=== PATIENT | female | born 1975 | race Caucasian/White ===

== ENCOUNTER → 2021-08-29 10:38 | Outpatient (CLI) | payer BC, SELFPAY ==
[2021-08-29 11:37] LABS: Influenza A - CEPHEID Flu A NEGATIVE (NEGATIVE); Influenza B - CEPHEID Flu B NEGATIVE (NEGATIVE)
[2021-08-29 11:41] LABS: COVID19 -Nasal RAPID Negative (Negative)
== END ==
PROVIDERS: Visit Provider Nurse Practitioner Family
DX: Z20.822 Contact with and (suspected) exposure to COVID-19 (principal); J06.9 Acute upper respiratory infection, unspecified
CPT/HCPCS: 87502; 87635

== ENCOUNTER 2021-11-21 02:48 | Emergency (ER) | payer BC, SELFPAY ==
--- NOTE | 2021-11-21 02:56 | ED.FALL ---
HPI - Fall General Stated Complaint: v/d rt upper back pain x2 hours Time Seen by Provider: 11/21/21 02:54 Related Data Allergies Allergy/AdvReac Type Severity Reaction Status Date / Time Sulfa (Sulfonamide Allergy Unknown Verified 08/29/21 10:36 Antibiotics) Patient History Social History Smoking Status: Never smoker Smoking Status: Never smoker Course Orders Ordered: ED Orders 11/21/21 02:55 CT cervical spine wo con Stat CT head/brain wo con Stat Ketorolac Tromethamine (Ketorolac 30 Mg/Ml Vial) 30 mg IM NOW ONE Stop: 11/21/21 02:56 Discharge Plan Departure Referrals: Miscellaneous,Doctor, [Primary Care Provider] -
[2021-11-21 03:05] VITALS: BP 140/67; PULSE 96; RESP 20; TEMP 36.6; O2SAT 99; BMI 40.7
--- NOTE | 2021-11-21 03:18 | ED_ITS ---
HPI - Back Pain/Injury General Chief Complaint: Abdominal Pain Stated Complaint: v/d rt upper back pain x2 hours Time Seen by Provider: 11/21/21 02:54 Source: patient Mode of arrival: Ambulatory Limitations: no limitations History of Present Illness HPI Narrative: This is a 46-year-old female comes in with complaint of sudden onset while sleeping of right upper quadrant pain radiating to the back she has had vomiting and diarrhea. Symptoms started about 2 hours prior to arrival. She has had 2 episodes of vomiting and diarrhea but no black or blood. No fevers or chills. No chest pain shortness of breath. No dysuria urgency or frequency. No new vaginal bleeding or discharge. Patient has had a cholecystectomy, hysterectomy and appendectomy which was performed with her hysterectomy. She states this fe els bili similar to when she had her gallbladder out. She does not smoke. She usually has 1 to 2 alcoholic drinks every couple days. No illicit recreational drugs. She does have a history of seasonal asthma, DANIELS with typicall normal LFTs, hypertriglyceridemia with levels 400 last year and gabapentin for migraines. She states she is allergic to sulfa and morphine. She is accompanied by . Her primary care is in [place]. Related Data Allergies Allergy/AdvReac Type Severity Reaction Status Date / Time Sulfa (Sulfonamide Allergy Unknown Verified 08/29/21 10:36 Antibiotics) Review of Systems Review of Systems ROS Unobtainable: All systems reviewed & are unremarkable except as noted in HPI and below Patient History Social History Smoking Status: Never smoker Smoking Status: Never smoker alcohol intake frequency: 0-2 drinks per day Substance Use Type: does not use Exam Narrative Exam Narrative: GENERAL: Alert and oriented x three, obese female in [id number] distress. HEENT: Head normocephalic, atraumatic, EOMI, pupils reactive, face symmetric, moist mucous membranes NECK: Supple, full range of motion CARDIOVASCULAR: Regular rate and rhythm without murmurs, rubs or gallops. RESPIRATORY: Breath sounds equal bilaterally, no wheezes rales or rhonchi. ABDOMEN: Soft, nontender. Normoactive bowel sounds all 4 quadrants. No guarding or rebound, rigidity, no mass : No CVA tenderness EXTREMITIES: Normal range of motion, no clubbing or edema. Neurovascularly intact NEUROLOGICAL: Cranial nerves II through XII grossly intact. Moving all extremities SKIN: Warm, dry, no petechiae, no rashes or lesions. Initial Vital Signs Initial Vital Signs: Vital Signs Temperature 97.9 F 11/21/21 03:05 Pulse Rate 96 H 11/21/21 03:05 Respiratory Rate 20 11/21/21 03:05 Blood Pressure 140/67 11/21/21 03:05 Pulse Oximetry 99 11/21/21 03:05 Course Orders Ordered: ED Orders 11/21/21 03:24 EKG-12 Lead Stat 11/21/21 03:34 Complete Blood Count AUTO DIFF Stat Comprehensive Metabolic Panel Stat Lipase Stat 11/21/21 03:45 Urine Microscopic Stat 11/21/21 03:51 COVID19 -Nasal swab/Pre-Proc Stat 11/21/21 04:00 CT abdomen pelvis w con Stat Discontinued Medications Ketorolac Tromethamine (Ketorolac 30 Mg/Ml Vial) 30 mg IM NOW ONE Stop: 11/21/21 02:56 Ketorolac Tromethamine (Ketorolac 30 Mg/Ml Vial) 30 mg IV NOW ONE Stop: 11/21/21 05:40 Last Admin: 11/21/21 05:46 Dose: 30 mg Documented by: WINSOME Ondansetron HCl (Ondansetron 4 Mg/2 Ml Inj) 4 mg IV NOW ONE Stop: 11/21/21 03:56 Last Admin: 11/21/21 04:09 Dose: 4 mg Documented by: WINSOME Ondansetron HCl (Ondansetron 4 Mg Odt Prepack) 1 bottle MISC SEEINSTR ONE Stop: 11/21/21 06:21 Last Admin: 11/21/21 06:26 Dose: 1 bottle Documented by: Reevaluation(s) Reevaluation #1: Patient feeling much better after medications. No additional vomiting or diarrhea. Time: 06:22 Vital Signs Vital signs: Vital Signs - 8 hr 11/21/21 03:05 11/21/21 04:49 11/21/21 05:00 Temperature 97.9 F Pulse Rate 96 H 73 72 Respiratory Rate 20 Blood Pressure 140/67 Pulse Oximetry 99 94 94 MDM - Back Pain/Injury Lab Data Result diagrams: 11/21/21 03:34 11/21/21 03:34 Labs: Lab Results 11/21/21 11/21/21 11/21/21 Range/Units 03:34 03:34 03:45 WBC 11.2 H (4.5-11.0) X10^3/uL RBC 4.70 (4.0-5.2) X10^6/uL Hgb 14.1 (12.0-16.0) g/dL Hct 41.2 (36-46) % MCV 87.8 (80-100) fL MCH 30.0 (26-34) PG MCHC 34.2 (30-36) % RDW 13.0 (11.6-14.8) % Plt Count 175 (150-400) X10^3/uL Neut % (Auto) 80.8 H (50-75) % Lymph % (Auto) 11.3 L (25-40) % [place] % (Auto) 6.4 (3-14) % Eos % (Auto) 1.1 L (2-4) % Baso % (Auto) 0.4 (0-2) % Neut # (Auto) 9000 H (4397-0307) /uL Lymph # (Auto) 1300 (7674-4315) /uL [place] # (Auto) 700 (0-900) /uL Eos # (Auto) 100 (0-450) /uL Baso # (Auto) 0 (0-100) /uL Sodium 138 (137-145) mmol/L Potassium 4.3 (3.4-5.1) mmol/L Chloride 104 (98-107) mmol/L Carbon Dioxide 29 (22-32) mmol/L BUN 19 H (7-17) mg/dL Creatinine 0.81 (0.52-1.04) mg/dL Estimated GFR > 60.0 (>60) mL/min BUN/Creatinine Ratio 23.5 H (6-22) Glucose 129 H (70-100) mg/dL Calcium 9.2 (8.4-10.2) mg/dL Total Bilirubin 0.5 (0.2-1.3) mg/dL AST 36 (14-36) IU/L ALT 40 H (<35) IU/L Alkaline Phosphatase 70 (38-126) U/L Total Protein 7.0 (6.3-8.2) g/dL Albumin 4.5 (3.5-5.0) g/dL Globulin 2.5 (1.7-4.1) g/dL Albumin/Globulin Ratio 1.8 (1.0-2.8) Lipase 92 (23-300) U/L Urine RBC None seen (0-5/HPF) Urine WBC 0-1/hpf (0-5/HPF) Ur Squamous Epith Cells 1-5 /hpf (0-5/HPF) Urine Bacteria None seen (None) Ur Culture Indicated? Cult not indicated SARS-CoV-2 (PCR) (Negative) 11/21/21 Range/Units 03:51 WBC (4.5-11.0) X10^3/uL RBC (4.0-5.2) X10^6/uL Hgb (12.0-16.0) g/dL Hct (36-46) % MCV (80-100) fL MCH (26-34) PG MCHC (30-36) % RDW (11.6-14.8) % Plt Count (150-400) X10^3/uL Neut % (Auto) (50-75) % Lymph % (Auto) (25-40) % [place] % (Auto) (3-14) % Eos % (Auto) (2-4) % Baso % (Auto) (0-2) % Neut # (Auto) (4586-0058) /uL Lymph # (Auto) (3243-2809) /uL [place] # (Auto) (0-900) /uL Eos # (Auto) (0-450) /uL Baso # (Auto) (0-100) /uL Sodium (137-145) mmol/L Potassium (3.4-5.1) mmol/L Chloride (98-107) mmol/L Carbon Dioxide (22-32) mmol/L BUN (7-17) mg/dL Creatinine (0.52-1.04) mg/dL Estimated GFR (>60) mL/min BUN/Creatinine Ratio (6-22) Glucose (70-100) mg/dL Calcium (8.4-10.2) mg/dL Total Bilirubin (0.2-1.3) mg/dL AST (14-36) IU/L ALT (<35) IU/L Alkaline Phosphatase (38-126) U/L Total Protein (6.3-8.2) g/dL Albumin (3.5-5.0) g/dL Globulin (1.7-4.1) g/dL Albumin/Globulin Ratio (1.0-2.8) Lipase (23-300) U/L Urine RBC (0-5/HPF) Urine WBC (0-5/HPF) Ur Squamous Epith Cells (0-5/HPF) Urine Bacteria (None) Ur Culture Indicated? SARS-CoV-2 (PCR) Negative (Negative) Point of Care Testing Test Results Negative Urine Dip Bedside Urine Glucose Negative Bedside Urine Bilirubin + 1 Bedside Urine Ketone - Negative Urine Specific Zam[place] 1.015 Bedside Urine Occult Blood - Negative Bedside Urine pH 6.5 Bedside Urine Protein +/- 15 Bedside Urine Urobilinogen - Negative Bedside Urine Nitrite - Negative Bedside Urine Leukocytes - Negative Esterase Imaging Data CT scan - abdomen/pelvis: Radiologist's Impression: Hepatomegaly with hepatic steatosis. Post cholecystectomy. Normal pancreas. Normal appendix and terminal ileum. Mild thickened loops of proximal small bowel with an obstructing pattern reflecting small bowel enteritis and no evidence of obstructive uropathy. ECG Data Attestation: I personally reviewed and interpreted this ECG as follows: Prior ECG tracings: not available for review Interpretation: Sinus rhythm, rate of 78 WI 184 QRS of [address]TC [address] No acute ST elevation or depression noted. MDM Narrative Medical decision making narrative: This is a 46-year-old female who had sudden onset of right upper abdominal pain radiating to her back similar to when she had her gallbladder out with vomiting and diarrhea for several hours. Patient has not had any persistent diarrhea vomiting in the department. She has Zofran which was helpful. Labs and urine reassuring. CT was ordered as she no longer has a gallbladder. She has findings consistent with small-bowel enteritis but no other acute changes appreciated. Patient feels much more comfortable upon reassessment. She feels comfortable returning home. Give her short course of Zofran and return precautions discussed. Discharge Plan Departure Patient Disposition: Home Clinical Impression: Abdominal pain, vomiting, and diarrhea Instructions: DI for Viral Gastroenteritis -- Adult Activity Restrictions/Additional Instructions: Your labs and imaging findings today are consistent with a gastroenteritis. You may take Zofran 1 tablet every 6 hours as needed for nausea. Please return for fevers, new or worsening abdominal, back or flank pain, persistent vomiting, black or bloody stools or other new or concerning symptoms. Referrals: Miscellaneous,Doctor, [Primary Care Provider] -
[2021-11-21 03:47] LABS: Add Manual Diff / Slide Review NO; Basophils Absolute Auto 0 /uL (0-100); Basophils Percent Auto 0.4 % (0-2); Eosinophils Absolute Auto 100 /uL (0-450); Eosinophils Percent Auto 1.1 % (2-4); Hematocrit 41.2 % (36-46); Hemoglobin 14.1 g/dL (12.0-16.0); Lymphocytes Absolute Auto 1300 /uL (1100-4500); Lymphocytes Percent Auto 11.3 % (25-40); Mean Corpuscular HGB Conc 34.2 % (30-36); Mean Corpuscular Volume 87.8 fL (80-100); Monocytes Absolute Auto 700 /uL (0-900); Monocytes Percent Auto 6.4 % (3-14); Neutrophils Absolute Auto 9000 /uL (1500-7000); Neutrophils Percent Auto 80.8 % (50-75); Platelet Count 175 X10^3/uL (150-400); White Blood Cell Count 11.2 X10^3/uL (4.5-11.0)
[2021-11-21 03:53] LABS: Alanine Aminotransferase 40 IU/L (<35); Albumin 4.5 g/dL (3.5-5.0); Albumin Globulin Ratio 1.8 (1.0-2.8); Alkaline Phosphatase 70 U/L (38-126); Aspartate Aminotransferase 36 IU/L (14-36); BUN Creatinine Ratio 23.5 (6-22); Bilirubin Total 0.5 mg/dL (0.2-1.3); Blood Urea Nitrogen 19 mg/dL (7-17); Calcium 9.2 mg/dL (8.4-10.2); Carbon Dioxide 29 mmol/L (22-32); Chloride 104 mmol/L (98-107); Estimated Glomerular Filt Rate > 60.0 mL/min (>60); Globulin 2.5 g/dL (1.7-4.1); Glucose 129 mg/dL (70-100); HEMOLYSIS < 15 (0-50); Lipase 92 U/L (23-300); Potassium 4.3 mmol/L (3.4-5.1); Sodium 138 mmol/L (137-145)
--- NOTE | 2021-11-21 04:00 | DI.CT.S_ITS ---
PROCEDURE: CT ABDOMEN PELVIS W CON INDICATIONS: RUQ pain radiates to back. v/d TECHNIQUE: After the administration of oral and IV contrast, axial sections were acquired from the lung bases to the pubic symphysis. Coronal and sagittal reformats were performed. For radiation dose reduction, the following was used: automated exposure control, adjustment of mA and/or kV according to patient size. COMPARISON: None. FINDINGS: Image quality: Excellent. Lung bases: Unremarkable. Heart: No significant findings. ABDOMEN: Liver: Prominent size. Possible hepatic steatosis. No focal lesion. Gallbladder: Surgically absent. Biliary ducts: No dilatation. Pancreas: Enhances uniformly. No peripancreatic fluid collection. Spleen: No splenomegaly. Adrenal Glands: No nodule. Kidneys and Ureters: No hydronephrosis. Small simple cyst at the superior pole of the left kidney. Stomach and Bowel: Stomach, small bowel loops, and colon are unremarkable. Peritoneum: No abnormal intraperitoneal fluid. No free air. Ventral Wall: No hernia. Abdominal Nodes: No retroperitoneal or mesenteric adenopathy by size criteria. Vessels: Aorta and inferior vena cava are normal in size. PELVIS: Pelvic Organs: Uterus is absent. Bladder: Decompressed. Pelvic Nodes: No enlarged lymph nodes. Miscellaneous: No inguinal hernias are seen. Bones: No compression fracture. IMPRESSION: 1. No acute inflammatory process is identified. No peripancreatic fluid collection. 2. Post cholecystectomy. 3. No hydronephrosis. No significant discrepancy with the overnight preliminary interpretation. Dictated by: Ramiro Wells M.D. on 11/21/2021 at 8:20 Approved by: Ramiro Wells M.D. on 11/21/2021 at 8:36
[2021-11-21] MEDS: ONDANSETRON 4 MG/2 ML INJ IV (04:09)
[2021-11-21 04:10] LABS: COVID19 -Nasal RAPID Negative (Negative)
[2021-11-21 04:13] LABS: Bacteria Urine None Seen; Culture Indicated Urine Cult Not Indicated; RBC Urine None Seen (0-5/HPF); Squamous Epithelial Cell Urine 1-5 /HPF (0-5/HPF); WBC Urine 0-1/HPF (0-5/HPF)
[2021-11-21 04:49] VITALS: PULSE 73; O2SAT 94
[2021-11-21 05:00] VITALS: PULSE 72; O2SAT 94
[2021-11-21 05:30] VITALS: PULSE 71; O2SAT 94
[2021-11-21] MEDS: KETOROLAC 30 MG/ML VIAL IV (05:46)
[2021-11-21 06:00] VITALS: PULSE 66; O2SAT 95
[2021-11-21] MEDS: ONDANSETRON 4 MG ODT PREPACK 1 BOTTLE MISC (06:26)
[2021-11-21 06:35] VITALS: BP 119/64; PULSE 68; RESP 18; O2SAT 96
== END 2021-11-21 06:36 | disposition home or self-care (01) ==
PROVIDERS: Emergency Provider Emergency Medicine
DX: R10.11 Right upper quadrant pain (principal); R11.2 Nausea with vomiting, unspecified; R19.7 Diarrhea, unspecified; Z20.822 Contact with and (suspected) exposure to COVID-19
CPT/HCPCS: 36415; 74177; 80053; 81003; 81015; 81025; 83690; 85025; 87635; 93005; 96374; 96375; 99284; C9803; J1885; J2405; Q9967

== ENCOUNTER → 2022-01-03 15:54 | Outpatient (ROUT) | payer BC, SELFPAY | PROVIDERS: Visit Provider Ophthalmology | DX: H10.011 Acute follicular conjunctivitis, right eye (principal) | CPT/HCPCS: 87070; 87075; 87205 ==

== ENCOUNTER → 2022-02-14 07:18 | Outpatient (CLI) | payer OTHER, SELFPAY ==
[2022-02-14 08:07] LABS: Alanine Aminotransferase 42 IU/L (<35); Albumin 4.5 g/dL (3.5-5.0); Albumin Globulin Ratio 1.9 (1.0-2.8); Alkaline Phosphatase 76 U/L (38-126); Aspartate Aminotransferase 35 IU/L (14-36); BUN Creatinine Ratio 23.5 (6-22); Bilirubin Total 0.5 mg/dL (0.2-1.3); Blood Urea Nitrogen 19 mg/dL (7-17); Calcium 9.1 mg/dL (8.4-10.2); Carbon Dioxide 29 mmol/L (22-32); Chloride 105 mmol/L (98-107); Cholesterol 158 mg/dL (140-199); Estimated Glomerular Filt Rate > 60.0 mL/min (>60); Globulin 2.4 g/dL (1.7-4.1); Glucose 119 mg/dL (70-100); HDL Cholesterol 41 mg/dL (40-60); HEMOLYSIS < 15 (0-50); LDL Cholesterol Calculated 79 mg/dL (<100); Potassium 4.3 mmol/L (3.4-5.1); Sodium 140 mmol/L (137-145); Total Protein 6.9 g/dL (6.3-8.2); Triglycerides 191 mg/dL (35-150)
[2022-02-14 10:03] LABS: Hep C Virus Ab w/Reflex Quant NEGATIVE s/c (NEGATIVE)
[2022-02-16 11:54] LABS: QuantiFERON Mitogen Value >10.00 IU/mL (.); QuantiFERON Nil Value 0.08 IU/mL (.); QuantiFERON TB Gold Plus Negative (Negative); QuantiFERON TB1 Ag Value 0.08 IU/mL (.); QuantiFERON TB2 Ag Value 0.08 IU/mL (.)
== END ==
PROVIDERS: PCP Internal Medicine; Referring Provider Internal Medicine; Visit Provider Internal Medicine
DX: Z00.00 Encounter for general adult medical examination without abnormal findings (principal); Z11.1 Encounter for screening for respiratory tuberculosis
CPT/HCPCS: 36415; 80053; 80061; 84443; 86480; 86803

== ENCOUNTER → 2022-09-19 16:54 | Outpatient (CLI) | payer BC, SELFPAY ==
[2022-09-19 17:49] LABS: Alanine Aminotransferase 77 IU/L (<35); Albumin 4.7 g/dL (3.5-5.0); Albumin Globulin Ratio 1.7 (1.0-2.8); Alkaline Phosphatase 81 U/L (38-126); Aspartate Aminotransferase 52 IU/L (14-36); BUN Creatinine Ratio 16.7 (6-22); Bilirubin Total 0.5 mg/dL (0.2-1.3); Blood Urea Nitrogen 17 mg/dL (7-17); Calcium 9.2 mg/dL (8.4-10.2); Carbon Dioxide 25 mmol/L (22-32); Chloride 102 mmol/L (98-107); Estimated Glomerular Filt Rate > 60 mL/min (>60); Globulin 2.8 g/dL (1.7-4.1); Glucose 105 mg/dL (70-100); HEMOLYSIS 23 (0-50); Sodium 138 mmol/L (137-145); Total Protein 7.5 g/dL (6.3-8.2); Uric Acid 5.9 mg/dL (2.5-6.2)
[2022-09-19 17:53] LABS: Rheumatoid Factor 9.2 IU/mL (<12.0)
[2022-09-19 18:12] LABS: Add Manual Diff / Slide Review NO; Basophils Absolute Auto 0 /uL (0-100); Basophils Percent Auto 0.6 % (0-2); Eosinophils Absolute Auto 100 /uL (0-450); Eosinophils Percent Auto 2.1 % (2-4); Hematocrit 40.6 % (36-46); Lymphocytes Absolute Auto 2000 /uL (1100-4500); Lymphocytes Percent Auto 35.5 % (25-40); Mean Corpuscular HGB Conc 34.6 % (30-36); Mean Corpuscular Hemoglobin 30.1 PG (26-34); Monocytes Absolute Auto 500 /uL (0-900); Monocytes Percent Auto 9.1 % (3-14); Neutrophils Absolute Auto 2900 /uL (1500-7000); Neutrophils Percent Auto 52.7 % (50-75); Platelet Count 168 X10^3/uL (150-400); Red Blood Cell Count 4.67 X10^6/uL (4.0-5.2); Red Cell Distribution Width 13.3 % (11.6-14.8); White Blood Cell Count 5.5 X10^3/uL (4.5-11.0)
[2022-09-19 18:29] LABS: Thyroid Stimulating Hormone 1.58 uIU/mL (0.47-4.68)
[2022-09-19 18:57] LABS: Erythrocyte Sedimentation Rate 3 MM/HR (0-20)
[2022-09-21 08:10] LABS: EBV Virus IgM Ab < 36.0 U/mL (0.0-35.9)
[2022-09-21 14:08] LABS: SS A Ro Sjogrens Antibody < 0.2 AI (0.0-0.9); SS B La Sjogrens Antibody < 0.2 AI (0.0-0.9)
[2022-09-22 07:19] LABS: Angiotensin Converting Enzyme 54 U/L (14-82)
[2022-09-23 12:53] LABS: ANA Screen, IFA Negative (.)
[2022-10-02 18:07] LABS: HLA B27 Negative (.)
== END ==
PROVIDERS: PCP Internal Medicine; Referring Provider Ophthalmology; Visit Provider Ophthalmology
DX: H15.101 Unspecified episcleritis, right eye (principal); H54.7 Unspecified visual loss; H44.111 Panuveitis, right eye
CPT/HCPCS: 36415; 80053; 81374; 82164; 84443; 84550; 85025; 85651; 86038; 86140; 86235; 86430; 86665

== ENCOUNTER → 2023-11-23 16:28 | Outpatient (CLI) | payer BC, SELFPAY ==
--- NOTE | 2023-11-23 16:30 | DI.MRI.S_ITS ---
PROCEDURE: MR CERVICAL SPINE WO CON INDICATIONS: Radiculopathy, cervical region TECHNIQUE: Noncontrast sagittal T1 spin echo and T2 fast spin echo, sagittal STIR, foraminal oblique sagittal T2 fast spin echo, and axial gradient echo or T2 fast spin echo through the cervical spine. COMPARISON: [facility], CR, XR CERVICAL SPINE WITH OBLIQUES, 10/19/2023, 9:21. [facility], CT, CT CERVICAL SPINE WITHOUT CONTRAST, 04/28/2022, 16:30. FINDINGS: Image quality: Excellent. Alignment and Curvature: Cervical straightening is present. Bone Marrow: Marrow demonstrates normal overall signal. Spinal Cord: Visualized spinal cord has normal size and signal. No cerebellar tonsillar herniation. Paraspinous Soft Tissues: No paravertebral masses. Prevertebral soft tissues are normal in thickness. Discs: Minimal disc desiccation is present C5-6. C2-C3: No disc bulge, spinal stenosis or foraminal narrowing. C3-C4: Trace disc bulge with effacement of the anterior thecal sac. No foraminal narrowing. C4-C5: Trace disc bulge with superimposed posterior central protrusion with indentation of the anterior thecal sac as well as cord. No foraminal narrowing. C5-C6: Trace disc bulge with superimposed posterior central protrusion with slight indentation of the anterior thecal sac and cord. Overall mild spinal stenosis. Mild left foraminal narrowing. C6-C7: Minimal disc bulge with slight effacement of the anterior thecal sac. Minimal left foraminal narrowing. C7-T1: No disc bulge, spinal stenosis or foraminal narrowing. IMPRESSION: Multilevel early degenerative changes. Foraminal narrowing is most prominent at C5-6. Dictated by: Aislinn Fagan M.D. on 11/26/2023 at 10:12 Approved by: Aislinn Fagan M.D. on 11/26/2023 at 11:31
== END ==
PROVIDERS: PCP Internal Medicine; Referring Provider Physical Medicine & Rehabilitation Pain Medicine; Visit Provider Physical Medicine & Rehabilitation Pain Medicine
DX: M54.12 Radiculopathy, cervical region (principal); M48.02 Spinal stenosis, cervical region
CPT/HCPCS: 72141

== ENCOUNTER → 2024-06-19 07:50 | Outpatient (CLI) | payer BC, SELFPAY ==
--- NOTE | 2024-06-19 07:51 | DI.MG.S_ITS ---
BILATERAL DIGITAL SCREENING MAMMOGRAM 3D/2D WITH CAD: 06/19/2024 CLINICAL: Routine screening. Family history of breast cancer. Comparison is made to exams dated: 02/23/2022 mammogram - [facility] and 01/16/2019 mammogram - [facility]. There are scattered areas of fibroglandular density in both breasts (category b / 25%-50% glandular tissue). Current study was also evaluated with a Computer Aided Detection (CAD) system. No significant masses, calcifications, or other findings are seen in either breast. There has been no significant interval change. IMPRESSION: NEGATIVE There is no mammographic evidence of malignancy. A 1 year screening mammogram is recommended. Based on the Tyrer Cuzick model (a risk assessment model) the patient's lifetime risk is 4.3% and her 10 year risk is 1.0%. According to the ACR, ACS, and NCCN guidelines, an annual breast MRI exam along with mammogram is recommended if the patient's lifetime risk is 20% or greater. This exam was interpreted at Station ID: [id number]. NOTE: For mammograms, a report in lay terms will be sent to the patient. Approximately 15% of breast malignancies will not be visualized mammographically. In the management of a palpable breast mass, a negative mammogram must not discourage biopsy of a clinically suspicious lesion. Electronically Signed By: Dorian payne/shayne:06/27/2024 12:08:18 letter sent: Normal Exam ACR BI-RADS Category 1: Negative 3341F
== END ==
PROVIDERS: PCP Internal Medicine; Referring Provider Internal Medicine; Visit Provider Internal Medicine
DX: Z12.31 Encounter for screening mammogram for malignant neoplasm of breast (principal); Z80.3 Family history of malignant neoplasm of breast; R92.323 Mammographic fibroglandular density, bilateral breasts
CPT/HCPCS: 77063; 77067

== ENCOUNTER → 2025-06-30 12:37 | Outpatient (CLI) | payer BC, SELFPAY ==
--- NOTE | 2025-06-30 | DI.RAD.S_ITS ---
PROCEDURE: XR FOOT LT MIN 3V INDICATIONS: Fracture of unspecified metatarsal bone(s), left foot, initi TECHNIQUE: 3 views of the foot were acquired. COMPARISON: None. FINDINGS: Bones: No fractures or dislocations. No suspicious bony lesions. Small degenerative spurs and joint space loss at the tibiotalar articulation. Soft tissues: No tibiotalar joint effusion. Achilles tendon appears normal. IMPRESSION: No acute or chronic fractures. Dictated by: Heide Bonilla M.D. on 06/30/2025 at 17:03 Approved by: Heide Bonilla M.D. on 06/30/2025 at 17:06
== END ==
PROVIDERS: PCP Internal Medicine; Referring Provider Specialist; Visit Provider Specialist
DX: S92.302A Fracture of unspecified metatarsal bone(s), left foot, initial encounter for closed fracture (principal); X58.XXXA Exposure to other specified factors, initial encounter
CPT/HCPCS: 73630